=== PATIENT | male | born 1990 | race Caucasian/White ===

== ENCOUNTER 2020-04-09 21:47 | Emergency (ER) | payer OTHER ==
[~2020-04-09] VITALS: Ht 188 cm; Wt 165.0 kg
[2020-04-09 21:58] VITALS: BP 127/68
[2020-04-09] MEDS ORDERED: diphenhydrAMINE HCL 25 MG CAPSULE PO ONE (22:15)
--- NOTE | 2020-04-09 22:15 | PHYS DOC ---
Past History Past Medical History: No Pertinent History Past Surgical History: No Surgical History Alcohol Use: Occasionally Adult General Chief Complaint Chief Complaint: INSECT BITE HPI HPI Patient is a 29-year-old healthy male who presents for insect bite. This occurred yesterday while taking his [employer] physical fitness test. Reports being bitten/stung by unknown insect to his left lateral leg. Reports increased redness and mild swelling to the area in addition to worsening pruritus. Denies any purulent exudate, warmth, streaking or other signs of more systemic disease. Reports this is the first time it is ever happened. Nothing known makes better or worse. Patient has not taken anything for this. Due to increased redness, patient presented to our ER for formal evaluation Review of Systems Review of Systems Fourteen body systems of review of systems have been reviewed. See HPI for pertinent positives and negative responses, other figueredo all other systems are negative, non-pertinent or non-contributory Allergies Allergies Allergies Coded Allergies Type Severity Reaction Last Updated Verified No Known Drug Allergies 04/09/20 No Physical Exam Physical Exam Constitutional: Well developed, well nourished, no acute distress, non-toxic appearance. [] HENT: Normocephalic, atraumatic, bilateral external ears normal, oropharynx moist, no oral exudates, nose normal. [] Eyes: PERRLA, EOMI, conjunctiva normal, no discharge. [] Neck: Normal range of motion, no tenderness, supple, no stridor. [] Cardiovascular:Heart rate regular rhythm, no murmur [] Lungs & Thorax: Bilateral breath sounds clear to auscultation [] Abdomen: Bowel sounds normal, soft, no tenderness, no masses, no pulsatile masses. [] Skin: Warm, dry. Left lateral quadricep area with classic appearance of insect bite with surrounding erythema and pruritus with mild subcutaneous edema, no crepitus, no streaking, no purulent exudate present, no fluctuant mass [] Back: No tenderness, no CVA tenderness. [] Extremities: No tenderness, no cyanosis, no clubbing, ROM intact, no edema. [] Neurologic: Alert and oriented X 3, normal motor function, normal sensory function, no focal deficits noted. [] Psychologic: Affect normal, judgement normal, mood normal. [] Current Patient Data Vital Signs Vital Signs Date Time Temp Pulse Resp B/P (MAP) Pulse Ox O2 Delivery O2 Flow Rate FiO2 8/11/20 21:58 98.4 58 20 127/68 (87) 100 Room Air EKG EKG [] Radiology/Procedures Radiology/Procedures [] Course & Med Decision Making Course & Med Decision Making Well-appearing, hemodynamically stable patient seen and evaluated on ED arrival Comprehensive history and physical exam obtained, no indication for further work-up at this time Patient presentation classic for localized inflammatory response to foreign insect bite 25 mg p.o. Benadryl administered in ED. Continued supportive care at home advised. Site of redness marked and sharpie pen prior to discharge Strict return precautions discussed at length with good understanding by joyce beckett, all questions and concerns addressed Patient discharged home in stable condition with continued supportive care with antihistamines and close PCP follow-up advised Oz Disclaimer Oz Disclaimer This electronic medical record was generated, in whole or in part, using a voice recognition dictation system. Departure Departure: Impression: Primary Impression: Insect bite Disposition: HOME/RESIDENCE PRIOR TO ADM Condition: STABLE Referrals: PCP,NO (PCP) Patient Instructions: Insect Bite Justification of Admission: Justification of Admission: Justification of Admission Dx: N/A RAJENDRA SLAUGHTER DO Apr 09, 2020 22:15
== END 2020-04-09 22:30 | disposition home or self-care (01) ==
LOC: ER 21:47
DX: S76.192A Other specified injury of left quadriceps muscle, fascia and tendon, initial encounter (principal); W57.XXXA Bitten or stung by nonvenomous insect and other nonvenomous arthropods, initial encounter; Y93.89 Activity, other specified; Y92.89 Other specified places as the place of occurrence of the external cause; Y99.8 Other external cause status
CPT/HCPCS: 99282; Q0163; 99283

== ENCOUNTER 2020-12-08 22:46 | Emergency (ER) | payer OTHER ==
[~2020-12-08] VITALS: Ht 188 cm; Wt 73.4 kg
--- NOTE | 2020-12-08 23:22 | PHYS DOC ---
Past History Past Medical History: No Pertinent History Past Surgical History: No Surgical History Alcohol Use: Occasionally Adult General Chief Complaint Chief Complaint: LACERATION/AVULSION HPI HPI Patient is a 30-year-old male who presents with a chief complaint of chin laceration. States he was doing push-ups, showing his girlfriend and hit his chin against the wall. Denies any other injuries. States he is up-to-date on his vaccinations as he is in the . Review of Systems Review of Systems Review of systems otherwise unremarkable except noted in HPI Allergies Allergies Allergies Coded Allergies Type Severity Reaction Last Updated Verified No Known Drug Allergies 04/09/20 No Physical Exam Physical Exam Constitutional: Well developed, well nourished, no acute distress, non-toxic appearance. [] HENT: Normocephalic, atraumatic, bilateral external ears normal, oropharynx moist, no oral exudates, nose normal, approximately 1 cm superficial linear laceration just underneath the chin no bleeding.. [] Neck: Normal range of motion, no tenderness, supple, no stridor. [] Back: No tenderness, no CVA tenderness. [] Neurologic: Alert and oriented X 3, normal motor function, normal sensory function, no focal deficits noted. [] Psychologic: Affect normal, judgement normal, mood normal. [] EKG EKG [] Radiology/Procedures Radiology/Procedures [] Heart Score C/O Chest Pain: No Risk Factors: Risk Factors: DM, Current or recent (<one month) smoker, HTN, HLP, family history of CAD, obesity. Risk Scores: Risk Factors: DM, Current or recent (<one month) smoker, HTN, HLP, family history of CAD, obesity. Course & Med Decision Making Course & Med Decision Making Patient is a 30-year-old male who presents with chin laceration Vital signs not concerning. Physical exam noted above. Wound washed out. Dermabond repaired. Patient up-to-date on tetanus vaccination. Advised patient to call primary care in the morning and set up a follow-up ap pointment in the next week to 10 days for a wound check. Gave strict return precautions to the ED. Patient grateful, verbalized understanding and agreed with plan of discharge. [] Dragon Disclaimer Dragon Disclaimer This electronic medical record was generated, in whole or in part, using a voice recognition dictation system. Departure Departure: Impression: Primary Impression: Chin laceration Disposition: 01 DC HOME SELF CARE/HOMELESS Condition: GOOD Referrals: PCP,UNKNOWN (PCP) Patient Instructions: Facial Laceration Additional Instructions: Please read the attached information. Please keep the area clean, dry and bandaged. You can use Tylenol, ibuprofen and ice as needed. Please follow-up with your primary care physician in the morning to set up a follow-up wound check in a week to 10 days. Please come back to the ED with new or concerning symptoms. BUCK ZUNIGA MD Dec 08, 2020 23:22
[2020-12-08 23:35] VITALS: BP 110/62
== END 2020-12-08 23:35 | disposition home or self-care (01) ==
LOC: ER 22:46
DX: S01.81XA Laceration without foreign body of other part of head, initial encounter (principal); W22.01XA Walked into wall, initial encounter; Y93.89 Activity, other specified; Y92.89 Other specified places as the place of occurrence of the external cause; Y99.8 Other external cause status
CPT/HCPCS: 12011; 99282-25